=== PATIENT | female | born 1945 | race Asian ===

== ENCOUNTER 2022-03-06 07:54 | Emergency (ER) | payer MEDICARE, OTHER ==
[~2022-03-06] VITALS: Ht 160 cm; Wt 61.0 kg
[2022-03-06] MEDS ORDERED: METH500T22 PO (08:54)
[2022-03-06] MEDS ORDERED: ACET-1080 PO (08:54)
[2022-03-06] MEDS ORDERED: ACETAMINOPHEN 500 MG TAB PO ONE (09:00)
[2022-03-06 09:07] VITALS: BP 125/66
== END 2022-03-06 09:10 | disposition home or self-care (01) ==
LOC: ER 07:54
DX: M24.811 Other specific joint derangements of right shoulder, not elsewhere classified (principal); E78.5 Hyperlipidemia, unspecified; I10 Essential (primary) hypertension; W10.8XXA Fall (on) (from) other stairs and steps, initial encounter; Y93.89 Activity, other specified; Y92.89 Other specified places as the place of occurrence of the external cause; Y99.8 Other external cause status
CPT/HCPCS: 73030

== ENCOUNTER 2024-12-22 09:48 | Emergency (ER) | payer MEDICARE, OTHER ==
[~2024-12-22] VITALS: Ht 152.4 cm; Wt 60.0 kg
[~2024-12-22 09:48] MED LIST: ACET-1080 PO; METH-1181 PO
--- NOTE | 2024-12-22 10:07 | ED.PDOC ---
Musculoskeletal HPI Comments A 79 YEAR OLD FEMALE PRESENTS TO THE ED WITH COMPLAINT OF RIGHT HAND PAIN, RIGHT WRIST PAIN, AND LEFT SHOULDER PAIN S/P FALL. PATIENT STATES HE WAS WALKING OUTSIDE YESTERDAY AND SHE ACCIDENTALLY TRIPPED OVER A CONCRETE PATIO AND LANDED ON HER LEFT SHOULDER AND RIGHT HAND. PATIENT REPORTS SHE IS NOW EXPERIENCING LEFT SHOULDER PAIN, RIGHT WRIST PAIN, AND RIGHT HAND PAIN WITH SWELLING. PATIENT DENIES HEAD INJURY, NECK INJURY, LOC, FEVER, CHILLS, SHORTNESS OF BREATH, CHEST PAIN, ABDOMINAL PAIN, NAUSEA, VOMITING, HEADACHE, OR OTHER COMPLAINTS. NO OTHER SYMPTOMS OR MODIFYING FACTORS AT THIS TIME. PATIENT IS ALERT, ORIENTED X 4, AND HAS STEADY GAIT. Chief Complaint: Fall Injury Time Seen by MD: 09:56 Reviewed Notes: Nurses Notes, Medications, Allergies Allergies: Coded Allergies: NO KNOWN ALLERGIES (Unverified , 03/06/22) Home Meds Active Scripts Tramadol HCl (Tramadol HCl) 50 Mg Tab, 50 MG PO BID, #20 TAB Prov:JOSE ROJAS 12/22/24 Methocarbamol (Methocarbamol) 500 Mg Tab, 500 MG PO QHSP PRN, #20 TAB Prov:JOSE ROJAS 03/06/22 Acetaminophen (Tylenol 8 Hour Arthritis) 650 Mg Tab, 650 MG PO TID, #30 TAB Prov:JOSE ROJAS 03/06/22 Information Source: Patient Mode of Arrival: Ambulatory Location: Left, Right Extremity Location: Hand (RIGHT HAND), Shoulder (LEFT SHOULDER), Wrist (RIGHT WRIST) Timing: Days Prehospital treatment: None Severity: Moderate Able to Move Extremity: Yes Bear Weight: Fully Pain: Moderate Mechanism: Blunt Trauma Circumstances: Fall Onset of Symptoms: After Trauma Symptoms: Swelling, Pain DVT Risk Factors: NONE Last Tetanus: Unknown Associated signs and symptoms: Shoulder pain, Wrist pain, Swelling, Hand pain Past Medical History PAST MEDICAL HISTORY: High Lipids, HTN Surgical History: Denies all surgeries 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: 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 all 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 TANK OPERATOR Hx Family History Family History: Reviewed,noncontributory to illness Social History Smoker: Non-Smoker Alcohol: Denies ETOH Use Drugs: Denies Drug Use Lives In: Home Constitutional: denies: chills, diaphoresis, fatigue, fever, malaise, sweats, weakness, others EENTM: denies: blurred vision, double vision, ear bleeding, ear discharge, ear drainage, ear pain, ear ringing, eye pain, eye redness, hearing loss, mouth pain, mouth swelling, nasal discharge, nose bleeding, nose congestion, nose pain, photophobia, tearing, throat pain, throat swelling, voice changes, others Respiratory: denies: cough, hemoptysis, orthopnea, SOB at rest, shortness of breath, SOB with excertion, stridor, wheezing, others Cardiovascular: denies: chest pain, dizzy spells, diaphoresis, Dyspnea on exertion, edema, irregular heart beat, left arm pain, lightheadedness, palpitations, PND, syncope, others Gastrointestinal: denies: abdomen distended, abdominal pain, blood streaked bowels, constipated, diarrhea, dysphagia, difficulty swallowing, hematemesis, melena, nausea, poor appetite, poor fluid intake, rectal bleeding, rectal pain, vomiting, others Genitourinary: denies: abnormal vagina bleeding, burning, dyspareunia, dysuria, flank pain, frequency, hematuria, incontinence, pain, , vagina discharge, urgency, others Neurological: denies: dizziness, fainting, headache, left sided numbness, left sided weakness, numbness, paresthesia, pre-existing deficit, right sided numbness, right sided weakness, seizure, speech problems, tingling, tremors, weakness, others Musculoskeletal: reports: joint pain, joint swelling, others (RIGHT HAND PAIN WITH SWELLING, RIGHT WRIST PAIN, LEFT SHOULDER PAIN); denies: back pain, gout, muscle pain, muscle stiffness, neck pain Integumetry: denies: bruises, change in color, change in hair/nails, dryness, laceration, lesions, lumps, rash, wounds, others Allergic/Immunocompromised: denies: Difficulty Healing, Frequent Infections, Hives, Itching, others Hematologic/Lymphatic: denies: anemia, blood clots, easy bleeding, easy bruising, swollen glands, others Endocrine: denies: excessive hunger, excessive sweating, excessive thirst, excessive urination, flushing, intolerance to cold, intolerance to heat, unexplained weight gain, unexplained weight loss, others Psychiatric: denies: anxiety, bipolar disorder, depression, hopeless, panic disorder, schizophrenia, sleepless, suicidal, others All Other Systems: Reviewed and Negative Physical Exam General Appearance: No Apparent Distress, Obese HEENT: Normal ENT Inspection, PERRL/EOMI, Pharynx Normal, TMs Normal Neck: Full Range of Motion, Non-Tender, Normal, Normal Inspection Respiratory: Chest Non-Tender, Lungs Clear, No Accessory Muscle Use, No Respiratory Distress, Normal Breath Sounds Cardiovascular: No Edema, No JVD, No Murmur, No Gallop, Normal Peripheral Pulses, Regular Rate/Rhythm Breast Exam: Deferred Gastrointestinal: No Organomegaly, Non Tender, No Pulsatile Mass, Normal Bowel Sounds, Soft Genitalia: Deferred Pelvic: Deferred Rectal: Deferred Extremities: Decreased range of motion, No calf tenderness, Normal capillary refill, No pedal edema, Swelling (NO BONY TENDERNESS +SWELLING ON RIGHT HAND AND WRIST, NO DEFORMITY. ), Tender (BONY TENDERNESS AND CONTUSION AND SWELLING ON LEFT SHOULDER/CLAVICLE, NO DEFORMITY AND OPEN WOUND. ) Musculoskeletal : Apperance: Normal Neurologic: Alert, vocational placement specialist II-XII nml as Tested, No Motor Deficits, Normal Affect, Normal Mood, No Sensory Deficits Cerebellar Function: Normal Reflexes: Normal Skin: Bruises (LEFT SHOULDER AND RIGHT WRIST/HAND WITH SWELLING. ), Dry, Normal Color, Warm Peripheral Pulses: 2+ carotid (R), 2+ carotid (L), 2+ Radial (R), 2+ Radial (L) Lymphatic: No Adenopathy Was a procedure done? Was a procedure done?: No Differential Diagnosis EXT Differential Diagnosis: Fracture, Sprain, Dislocation, DJD, Contusion, Strain, Arthritis, Bursitis X-Ray, Labs, Meds, VS Vital Signs Date Time Temp Pulse Resp B/P (MAP) Pulse Ox O2 Delivery O2 Flow Rate FiO2 12/22/24 09:49 98.1 65 16 141/61 95 98.1 Current Medications Medications (Trade) Dose Ordered Sig/Shanice Route Start Time Stop Time Status Last Admin Acetaminophen (Tylenol Tablet Or Capsule) 1,000 mg ONCE ONCE PO 12/22/24 10:15 12/22/24 10:16 DC 12/22/24 10:42 CLINICAL INDICATION: pain; FALL TECHNIQUE: 2 radiographic views of the left shoulder were obtained. Comparison: R SHOULDER COMPLETE XRAY on DOS: 03/06/22 FINDINGS/IMPRESSION: There is a displaced fracture of the distal left clavicle. ATED BY: LEODAN YOUNG MD DICTATED DATE/TIME: 12/22/241052 SIGNED BY: LEODAN YOUNG MD SIGNED DATE/TIME: 12/22/241052 CC: CLINICAL INDICATION: Pain FALL TECHNIQUE: 3 radiographic views of the right wrist were obtained. Comparison: None FINDINGS/IMPRESSION: There is no evidence of acute fracture or dislocation. The visualized joint space is well maintained. Chondrocalcinosis The alignment is anatomical. There is no radiopaque foreign body. ATED BY: LEODAN YOUNG MD DICTATED DATE/TIME: 12/22/241051 SIGNED BY: LEODAN YOUNG MD SIGNED DATE/TIME: 12/22/24 105 CC: CLINICAL INDICATION: pain; FALL TECHNIQUE: 3 radiographic views of the right hand were obtained. Comparison: None FINDINGS/IMPRESSION: There is no evidence of acute fracture or dislocation. The visualized joint space is well maintained. Chondrocalcinosis. The alignment is anatomical. There is no radiopaque foreign body. ATED BY: LEODAN YOUNG MD DICTATED DATE/TIME: 12/22/241051 SIGNED BY: LEODAN YOUNG MD SIGNED DATE/TIME: 12/22/241051 CC: X-Ray, Labs, Meds, VS Comment EXTERNAL MEDICAL RECORDS REVIEWED: [NONE] INDEPENDENT HISTORIANS: [NONE] SOCIAL DETERMINANTS OF HEALTH: [NONE] LABS ORDERED: NONE REVIEWED AND INTERPRETED RESULTS: NONE IMAGING ORDERED: XR WRIST RT, XR HAND RT, XR SHOULDER LT TREATMENTS ORDERED: ARM LING APPLIED TO LEFT ARM, BLACK BRACE APPLIED TO PATIENT'S RIGHT WRIST PROCEDURES PERFORMED: NONE CRITICAL CARE TIME: NONE I HAVE DISCUSSED THE PATIENT WITH THE ATTENDING PHYSICIAN DR. MARCO A STINSON AND SHE AGREES WITH THE PATIENT'S PLAN OF CARE AND DISPOSITION. BASED ON HISTORY OF PRESENT ILLNESS, AND PHYSICAL EXAM, PATIENT WILL BE DISCHARGED HOME. DISCUSSED PLAN FOR DISCHARGE HOME WITH RX [TYLENOL]. MEDICATION WARNINGS GIVEN. SHARED DECISION MAKING: PATIENT INSTRUCTED TO FOLLOW UP WITH PRIMARY CARE PROVIDER IN 1-2 DAYS FOR RE-EVALUATION OF SYMPTOMS. PATIENT VERBALIZES UNDERSTANDING TO RETURN TO ED FOR NEW OR WORSENING SYMPTOMS OR IF FOLLOW UP WITH PCP CANNOT BE OBTAINED. PATIENT FEELS COMFORTABLE GOING HOME AT THIS TIME. ALL QUESTIONS ADDRESSED AT TIME OF DISCHARGE. Images Reviewed?: Images reviewed and evaluated by me Time of 1ST Reevaluation: 11:06 Reevaluation 1ST: Improved Patient Education/Counseling: Diagnosis, Treatment, Need For Follow Up Family Education/Counseling: Diagnosis, Treatment, Need For Follow Up Medical Screening: No EMC Exist At This Time Departure 1 Departure Time of Disposition: 11:10 Impression: Primary Impression: Closed left clavicular fracture Qualified Codes: S42.035A - Nondisplaced fracture of lateral end of left clavicle, initial encounter for closed fracture Additional Impressions: Sprain of right wrist Qualified Codes: S63.501A - Unspecified sprain of right wrist, initial encounter Sprain of right hand Qualified Codes: S63.91XA - Sprain of unspecified part of right wrist and hand, initial encounter Status post fall Disposition: 01 HOME / SELF CARE / HOMELESS Condition: Stable Additional Instructions: FOLLOW-UP WITH PCP IN 1 TO 2 DAYS. TAKE MEDICATIONS PRESCRIBED. RETURN TO ED FOR ANY NEW OR WORSENING SYMPTOMS. e-Prescriptions Tramadol HCl (Tramadol HCl) 50 Mg Tab 50 MG PO BID, #20 TAB Prov: JOSE ROJAS 12/22/24 Discharged With: Self, Relative Critical Care Note Critical Care Time?: No Stability Stability form required: No I personally scribed for JOSE ROJAS ([email or web address]) on 12/22/24 at 10:07. Electronically submitted by Kamari Dejesus ([employer]). I personally scribed for JOSE ROJAS ([email or web address]) on 12/22/24 at 11:01. Electronically submitted by Kamari Dejesus ([employer]). I personally scribed for JOSE ROJAS ([email or web address]) on 12/22/24 at 11:02. Electronically submitted by Kamari Dejesus ([id number]). I personally scribed for JOSE ROJAS ([email or web address]) on 12/22/24 at 11:02. Electronically submitted by Kamari Dejesus ([employer]). I personally scribed for JOSE ROJAS ([email or web address]) on 12/22/24 at 11:03. Electronically submitted by Kamari Dejesus ([email or web address]). JOSE ROJAS Dec 22, 2024 10:07
[2024-12-22] MEDS: ACETAMINOPHEN 500 MG TAB or CAP PO ONE (10:42)
--- NOTE | 2024-12-22 10:54 | DVH ---
CLINICAL INDICATION: pain; FALL TECHNIQUE: 3 radiographic views of the right hand were obtained. Comparison: None FINDINGS/IMPRESSION: There is no evidence of acute fracture or dislocation. The visualized joint space is well maintained. Chondrocalcinosis. The alignment is anatomical. There is no radiopaque foreign body.
--- NOTE | 2024-12-22 10:54 | DVH ---
CLINICAL INDICATION: Pain FALL TECHNIQUE: 3 radiographic views of the right wrist were obtained. Comparison: None FINDINGS/IMPRESSION: There is no evidence of acute fracture or dislocation. The visualized joint space is well maintained. Chondrocalcinosis The alignment is anatomical. There is no radiopaque foreign body.
--- NOTE | 2024-12-22 10:55 | DVH ---
CLINICAL INDICATION: pain; FALL TECHNIQUE: 2 radiographic views of the left shoulder were obtained. Comparison: R SHOULDER COMPLETE XRAY on DOS: 03/06/22 FINDINGS/IMPRESSION: There is a displaced fracture of the distal left clavicle.
[2024-12-22] MEDS ORDERED: TRAM-626 PO (11:01)
[2024-12-22 11:09] VITALS: BP 126/49; TEMP 97.8
[2024-12-22 11:13] VITALS: PULSE 62; RESP 14; O2SAT 94
== END 2024-12-22 11:13 | disposition home or self-care (01) ==
LOC: ER 09:48
DX: S42.032A Displaced fracture of lateral end of left clavicle, initial encounter for closed fracture (principal); S63.591A Other specified sprain of right wrist, initial encounter; S63.8X1A Sprain of other part of right wrist and hand, initial encounter; I10 Essential (primary) hypertension; E78.5 Hyperlipidemia, unspecified; Z79.899 Other long term (current) drug therapy; W01.0XXA Fall on same level from slipping, tripping and stumbling without subsequent striking against object, initial encounter; Y93.01 Activity, walking, marching and hiking; Y92.89 Other specified places as the place of occurrence of the external cause; Y99.8 Other external cause status
CPT/HCPCS: 29125; 29130; 73030; 73110; 73130